=== PATIENT | female | born 1970 | race Caucasian/White ===

== ENCOUNTER 2021-07-28 17:44 | Inpatient (IN) | payer BC ==
[~2021-07-28] VITALS: Ht 165.1 cm; Wt 84.8 kg
--- NOTE | 2021-07-28 17:55 | NUR ---
DR. CINTRON AT FOR EVAL.
--- NOTE | 2021-07-28 18:16 | NUR ---
BIB [facility] FROM HOME,CHEST PAIN SINCE THIS MORNING,RELIEVED BY 2 SPRAYS OF NTG BY EMS,SEEN IN [facility] 6 DAYS AGO FOR CP AND LEFT AMA. PT AAOX4, VSS. RR EVEN & UNLABORED. PLACED ON CLOTH SHEARING SUPERVISOR, SR. WILL CONT TO MONITOR.
[2021-07-28] MEDS ORDERED: NITROGLYCERIN 0.4 MG/TAB BOTTLE ONE (18:18)
[2021-07-28] MEDS ORDERED: ASPIRIN 325 MG TABLET ONE (18:18)
[2021-07-28 18:27] LABS: BASOPHILS % (AUTO) 0.6 % (0.0-2.0); EOSINOPHILS % (AUTO) 1.1 % (0.0-6.0); HEMATOCRIT 44 % (33-45); HEMOGLOBIN 14.8 g/dL (11.5-14.8); LYMPHOCYTES # (AUTO) 1.7 K/uL (0.8-4.8); LYMPHOCYTES % (AUTO) 22.1 % (20.0-44.0); MEAN CORPUSCULAR HGB CONC 33 g/dl (31.0-36.0); MEAN CORPUSCULAR VOLUME 83 fL (82-100); MONOCYTES # (AUTO) 0.6 K/uL (0.1-1.30); MONOCYTES % (AUTO) 7.3 % (2.0-12.0); NEUTROPHILS # (AUTO) 5.4 K/uL (1.8-8.9); NEUTROPHILS % (AUTO) 68.9 % (43.0-81.0); PLATELET COUNT (AUTO) 340 K/uL (150-450); RED BLOOD CELL COUNT(AUTO) 5.35 MIL/uL (4.0-5.2); WHITE BLOOD COUNT (AUTO) 7.9 K/uL (4.3-11.0)
--- NOTE | 2021-07-28 18:27 | NUR ---
PT STS THAT BEVEL GEAR GENERATOR OPERATOR GAVE HER 4 TABS OF BABY ASPIRIN & [address] CINTRON AWARE & CANCELLED MEDS.
[2021-07-28] MEDS ORDERED: ASPIRIN 325 MG TABLET PO ONE (18:30)
[2021-07-28] MEDS ORDERED: NITROGLYCERIN 0.4 MG/TAB BOTTLE SL ONE (18:30)
[2021-07-28 18:33] LABS: CARBON DIOXIDE 26 mmol/L (21-32); CHLORIDE 100 mmol/L (98-107); CREATININE 0.7 mg/dL (0.6-1.3); GLUCOSE 285 mg/dL (74-106); SODIUM SERUM 137 mmol/L (136-145); UREA NITROGEN, BLOOD 16 mg/dL (7-18)
[2021-07-28] MEDS ORDERED: MECLIZINE HCL 25 MG TABLET ONE (19:27)
[2021-07-28] MEDS ORDERED: ONDANSETRON HCL/PF 4 MG/2 ML VIAL ONE (19:27)
[2021-07-28] MEDS ORDERED: KETOROLAC TROMETHAMINE 15 MG/ML VIAL ONE (19:28)
[2021-07-28] MEDS ORDERED: MECLIZINE HCL 12.5 MG TABLET PO ONE (19:30)
[2021-07-28] MEDS ORDERED: ONDANSETRON HCL/PF - ER 4 MG/2 ML VIAL IV ONE (19:30)
[2021-07-28] MEDS ORDERED: IV NS 0.9% 1,000 ML IV ONE (19:30)
[2021-07-28] MEDS ORDERED: KETOROLAC TROMETHAMINE INJ 30 MG/ML VIAL IV ONE (19:30)
--- NOTE | 2021-07-28 21:56 | NUR ---
CALLED [facility]UA[facility]MAN
--- NOTE | 2021-07-28 22:52 | NUR ---
ROOM ASSIGNMENT: [id number] TELE
--- NOTE | 2021-07-28 23:15 | NUR ---
REPORT GIVEN TO VEENA
--- NOTE | 2021-07-28 23:58 | NUR ---
PT TRANSPORTED 321 ON FABRIC SEPARATOR OPERATOR PER ACLS PROTOCOL. ALL V/S STABLE AT TIME OF TRANSFER.
[2021-07-29] VITALS: BP 160/104
[2021-07-29] MEDS ORDERED: ONDANSETRON HCL/PF 4 MG/2 ML VIAL IVP PRN (00:30)
[2021-07-29] MEDS ORDERED: ENOXAPARIN SODIUM 40 MG/0.4 ML DISP.SYRIN SQ SCH (00:30)
[2021-07-29] MEDS ORDERED: ZOLPIDEM TARTRATE 5 MG TABLET PO PRN (00:30)
[2021-07-29] MEDS ORDERED: NITROGLYCERIN PACKET 1 GM PACKET TOP SCH (00:30)
[2021-07-29] MEDS ORDERED: ACETAMINOPHEN 325 MG TABLET PO PRN (00:30)
[2021-07-29] MEDS ORDERED: Z GUARD REMEDY 2 OZ OINT TP PRN (00:30)
[2021-07-29 00:55] VITALS: BP 160/86
[2021-07-29] MEDS ORDERED: QUETIAPINE FUMARATE 100 MG TABLET PO SCH (01:00)
--- NOTE | 2021-07-29 01:00 | NUR ---
Patient arrived to [facility] at 0000. Initial VS 160/104, HR 115, O2 sat 97% on RA, Temp 98.6, RR 19. Patient does report some chest pain 10/19 to L chest at this time. Will give nitro once verified by pharmacy. Patient is A&Ox4. Tele monitor applied. Heart rate fast but rhythm is regular. Lung sounds clear. Bowel sounds normoactive, abdomen non-tender nor distended. LFA #20G flushed and patent. Educated pt. that she should be on bedrest for the night for the heart to rest as activity can increase the load on the heart and worsen chest pain additionally Bedrest because pt. c/o dizziness. Oriented pt. to call light, unit protocols, bed controls, etc. Will continue to monitor.
[2021-07-29 04:00] VITALS: BP 127/73
--- NOTE | 2021-07-29 04:00 | NUR ---
Patient vomited x1 clear but slightly brown tinged no sediments or particles present. The only thing pt. has had since noon on 07/28 is water. Pt. now reports her chest pain as flaring up and "burning" in sensation. PRN Zofran given.
--- NOTE | 2021-07-29 04:35 | NUR ---
PRN Zofran not effective. rn correctional paged with new order to try Maalox 30ml PO x1 and Protonix 40mg IV x1 now.
[2021-07-29] MEDS ORDERED: MAG HYDROX/AL HYDROX/SIMETH 30 ML UDC PO ONE (05:00)
[2021-07-29] MEDS ORDERED: PANTOPRAZOLE 40 MG VIAL IV ONE (05:00)
--- NOTE | 2021-07-29 06:40 | NUR ---
Maalox, zofran, and protonix not effective pt. continues vomiting clear-brown hued fluid with no particles in it. Now pt. is refusing to sit and or lay down and conserve her energy because her back is hurting (pt. has chronic back pain from former back injuries) and cannot take anything PO for pain. on-call notified... awaiting response.
[2021-07-29] MEDS ORDERED: PANTOPRAZOLE 40 MG TABLET.DR PO SCH (07:30)
--- NOTE | 2021-07-29 07:30 | NUR ---
SHEETER MACHINE OPERATOR OPENING NOTES RECEIVED PT SITTING ON BED, AWAKE, A/O X4, VERBALLY RESPONSIVE. NOTED WITH EPISODES OF VOMITING WITH YELLOWISH GASTRIC CONTENTS VOMITUS. ON TELEMONITOR WITH READING OF ST @105. NO C/O CHEST PAIN AT THIS TIME. WITH IV ACCESS ON LFA #20 SL, INTACT AND PATENT. SAFETY MEASURES IN PLACE, BED LOCKED AND IN LOWEST POSITION, SR UP X2, CALL LIGHT PLACED WITHIN EASY REACH. WILL CONTINUE TO MONITOR.
[2021-07-29] MEDS ORDERED: QUET300T2 PO (08:03)
[2021-07-29 08:23] VITALS: BP 157/99
[2021-07-29] MEDS ORDERED: MORPHINE SULFATE INJ 2 MG/ML DISP.SYRIN IV PRN (08:30)
[2021-07-29] MEDS ORDERED: ASPIRIN EC 81 MG TABLET.DR PO SCH (09:00)
[2021-07-29] MEDS ORDERED: METOPROLOL TARTRATE 25 MG TABLET PO SCH (09:00)
[2021-07-29] MEDS ORDERED: METOCLOPRAMIDE HCL 10 MG/2 ML VIAL IV SCH (09:00)
--- NOTE | 2021-07-29 09:00 | NUR ---
RN NOTES PATIENT WENT HOME AMA. EXPLAINED RISKS OF DISCHARGING AMA BUT PATIENT ADAMANT TO GO HOME. PER PATIENT SHE JUST WANT TO GO HOME AND WANT TO LAY DOWN AND BE COMFORTABLE ON HER OWN BED. IV ACCESS ON LFA REMOVED, NO BLEEDING NOTED, PRESSURE DRESSING APPLIED. NAME ARMBAND REMOVED. PER PT SHE ALREADY CALLED [facility] AND WILL BE PICKING HER UP IN 6 MINUTES. PT LEFT UNIT @0850 AMBULATORY IN NO ACUTE DISTRESS. MADE AWARE OF DISCHARGE AMA, CN ALSO AWARE.
[2021-07-29] MEDS ORDERED: ATORVASTATIN 40 MG TABLET PO SCH (22:00)
== END 2021-07-29 09:00 | disposition left against medical advice (07) | DRG 302 ==
LOC: ER 18:08 → TELE 23:57
PROVIDERS: ADMIT Nurse Practitioner Acute Care; ATTEND Internal Medicine
DX: I25.110 Atherosclerotic heart disease of native coronary artery with unstable angina pectoris (principal); I50.33 Acute on chronic diastolic (congestive) heart failure; I11.0 Hypertensive heart disease with heart failure; Z95.5 Presence of coronary angioplasty implant and graft; E11.9 Type 2 diabetes mellitus without complications; Z79.899 Other long term (current) drug therapy; E78.5 Hyperlipidemia, unspecified
CPT/HCPCS: 36415; 71045-TC; 80048-TC; 83880; 84484-TC; 85025-TC; 87081-TC; C9113; C9803; G0378; J1650; J1885; J2270; J2405; J7030; J8597